=== PATIENT | female | born 1950 | race Caucasian/White ===

== ENCOUNTER 2016-12-02 07:06 | Emergency (ER) | payer MEDICARE ==
[2016-12-02 07:23] VITALS: BMI 34.9
[2016-12-02 07:24] VITALS: O2SAT 95
[2016-12-02] MEDS ORDERED: Sodium Chloride 0.9% 500 ML IV ONE ×2 (08:06→08:15)
[2016-12-02 08:15] LABS: BASO # 0.1 K/uL (0.0-0.2); BASO % 0.9 % (0.0-2.0); EOS # 0.2 K/uL (0.0-0.7); EOS % 2.1 % (0.0-4.0); HEMATOCRIT 36.8 % (34.0-47.0); LYMPH # 1.3 K/uL (1.0-4.3); LYMPH % 15.3 % (20.0-40.0); MEAN CELL VOLUME 77.6 fL (81.0-99.0); MEAN CORPUSCULAR HEMOGLOBIN 25.6 pg (27.0-31.0); MEAN PLATELET VOLUME 8.8 fL (7.2-11.7); MONO # 0.7 K/uL (0.0-0.8); MONO % 8.8 % (0.0-10.0); NRBC % 0.1 % (0.0-2.0); RED CELL DISTRIBUTION WIDTH 13.7 % (11.5-14.5)
[2016-12-02 08:18] LABS: WHITE BLOOD COUNT 8.5 K/uL (4.8-10.8)
[2016-12-02 08:20] LABS: RBC URINE 1 /hpf (0-3); URINE BILIRUBIN NEGATIVE (NEGATIVE); URINE BLOOD NEGATIVE (NEGATIVE); URINE COLOR Yellow (YELLOW); URINE GLUCOSE (UA) NORMAL (Normal); URINE KETONE NEGATIVE (NEGATIVE); URINE LEUKOCYTE ESTERASE TRACE Leu/uL (Negative); URINE PROTEIN NEGATIVE (NEGATIVE); URINE UROBILINOGEN NORMAL mg/dL (0.2-1.0); WBC URINE 3 /hpf (0-5)
[2016-12-02 08:26] LABS: CHLORIDE 97 mmol/L (98-107)
[2016-12-02 08:27] LABS: POTASSIUM 4.2 mmol/L (3.6-5.2); SODIUM 136 mmol/L (132-148)
[2016-12-02 08:29] LABS: ALB/GLOB RATIO 1.2 (1.0-2.1); ALKALINE PHOSPHATASE 60 U/L (38-126); ALT/SGPT 36 U/L (9-52); AST/SGOT 27 U/L (14-36); BILIRUBIN,TOTAL 0.8 mg/dL (0.2-1.3); BLOOD UREA NITROGEN 15 mg/dL (7-17); CARBON DIOXIDE 25 mmol/L (22-30); GFR AFRICAN-AMERICAN > 60; GLUCOSE,RANDOM 102 mg/dL (65-105); TOTAL PROTEIN 7.6 g/dL (6.3-8.3)
[2016-12-02 08:30] LABS: CALCIUM 8.6 mg/dl (8.6-10.4)
--- NOTE | 2016-12-02 09:13 | C.PDOC ---
History Of Present Illness 65 y/o female presents to the ED complaining of left periumbilical pain and LLQ pain x 4 days. Patient admits to some nausea but denies vomiting or diarrhea. She reports that she was seen by her PMD who gave her Bentyl with no relief. Patient admits to known history of diverticulitis "almost every year" since 2007. She states this pain feels similar. Also denies fever, dysuria, hematuria , or other complaints. Time Seen by Provider: 12/02/16 07:41 Chief Complaint (Nursing): Abdominal Pain History Per: Patient History/Exam Limitations: no limitations Onset/Duration Of Symptoms: Days (4), Gradual, Persistent Current Symptoms Are (Timing): Still Present Location Of Pain/Discomfort: LLQ, Periumbilical (left) Radiation Of Pain To:: None Quality Of Discomfort: Sharp, Aching Associated Symptoms: Nausea Recent travel outside of the [place]: No Past Medical History Reviewed: Historical Data, Nursing Documentation, Vital Signs Vital Signs: Last Vital Signs Temp 98.3 F 12/02/16 07:23 Pulse 84 12/02/16 07:23 Resp 20 12/02/16 07:23 BP 153/94 H 12/02/16 07:23 Pulse Ox 95 12/02/16 11:26 - Medical History PMH: Arthritis, Diverticulitis, HTN Surgical History: Endoscopy (11/2012), Tonsillectomy (1962) - [facility] Procedures TOTAL KNEE REPLACEMENT (04/05/14) Family History: States: No Known Family Hx - Social History Hx Tobacco Use: No Hx Alcohol Use: No Hx Substance Use: No - Immunization History Hx Tetanus Toxoid Vaccination: No Hx Influenza Vaccination: Yes Hx Pneumococcal Vaccination: Yes Review Of Systems Except As Marked, All Systems Reviewed And Found Negative. Constitutional: Negative for: Fever Gastrointestinal: Positive for: Nausea, Abdominal Pain. Negative for: Vomiting , Diarrhea Genitourinary: Negative for: Dysuria, Hematuria Physical Exam - Physical Exam Appears: Non-toxic, No Acute Distress, Other (mildly uncomfortable) Skin: Normal Color, Warm, Dry Head: Atraumatic, Normacephalic Neck: Normal ROM, Supple Chest: Symmetrical Cardiovascular: Rhythm Regular Respiratory: Normal Breath Sounds, No Rales, No Rhonchi, No Wheezing Gastrointestinal/Abdominal: Soft, Tenderness (left periumbilical and LLQ), No Guarding, No Rebound, Other (obese) Back: Normal Inspection, No CVA Tenderness Extremity: Normal ROM, No Swelling Neurological/Psych: Oriented x3, Normal Speech, Normal Cognition ED Course And Treatment - Laboratory Results Result Diagrams: 12/02/16 08:08 12/02/16 08:08 O2 Sat by Pulse Oximetry: 95 (ra) Pulse Ox Interpretation: Normal - CT Scan/US CT Abd/Pelvis Other Rad Studies (CT/US): Read By Radiologist, Radiology Report Reviewed CT/US Interpretation: Accession No. : [id number]. Patient Name / ID : ENRIQUE MAN / [id number]. Exam Date : 12/02/2016 08:51:35 ( Approved ). Study Comment : Sex / Age : F / 65Y. Creator : jeff [email or web address]. Dictator : Brian Lynn MD. Mold Unloader : Chiropractic Physician : Brian Lynn MD. Approver2 : Report Date : 12/02/2016 08:58:19. My Comment : . PROCEDURE: CT Abdomen and pelvis dated 12/02/2016. HISTORY: LLQ,L PERIUMBILICAL PAIN, H/O DIVERTICULITIS. COMPARISON: None. TECHNIQUE: Contiguous axial images of the abdomen and pelvis performed in standard fashion without oral or intravenous contrast material. . Coronal and Sagittal reformats generated. Radiation dose: Total exam DLP = 1080.59 mGy-cm. FINDINGS: LOWER THORAX: Mild bibasilar atelectasis and/or scarring. No focal consolidation effusion or basilar pneumothorax. Small hiatal hernia with slight wall thickening of the distal esophagus that could be due to protrusion of gastric mucosa. Possibility of esophagitis not excluded. Heart size is within range of normal. No significant pericardial effusion. LIVER: The liver is the upper limits of normal in size measuring nearly 17.5 cm in CC dimension. No obvious hepatic mass collection or calcification identified on this noncontrast study. Suspect minimal fatty hepatic infiltration. GALLBLADDER AND BILE DUCTS : Gallbladder is physiologically distended. No evidence of intraluminal gallbladder calculi. PANCREAS: The pancreas is slightly atrophic. No pancreatic mass collection calcification or significant ductal dilatation. SPLEEN: Spleen exhibits normal size and attenuation pattern without mass collection or calcification. ADRENALS: No adrenal lesions. KIDNEYS AND URETERS: Questionable incomplete rotation of the right kidney. Kidneys are symmetric. No evidence of nephrolithiasis or hydronephrosis. BLADDER: Urinary bladder is physiologically distended. No evidence of intraluminal urinary bladder calculi. REPRODUCTIVE: The uterus and adnexal structures appear grossly unremarkable. APPENDIX: Normal-appearing appendix. BOWEL: Evaluation of the bowel is somewhat limited due to the lack of oral contrast material. The stomach is under distended which presumably accounts for mild thick-walled appearance. Visualized loops of small bowel exhibit normal contour and caliber. No evidence acute mechanical small bowel obstruction. Moderate amount of stool is seen within the at ascending and proximal transverse colon suggesting mild fecal retention/ constipation. There arm multiple colonic diverticula seen along the descending and sigmoid colon with mild wall thickening of a short segment of the distal descending colon surrounded by some mild infiltration and what appears to represent small amount of fluid. Findings consistent with acute diverticulitis. No gross free intraperitoneal air nor walled-off abscess seen at this time. PERITONEUM: As above. Small fat containing umbilical hernia. LYMPH NODES: Unremarkable. No enlarged lymph nodes. VASCULATURE: Unremarkable. No aortic aneurysm. BONES: Mild -moderate multilevel degenerative spondylosis of the thoracic and lumbar spine. . Questionable old non fused avulsion chip fracture superior L3 segment. OTHER FINDINGS: None. IMPRESSION: Findings consistent with diverticulosis and mild diverticulitis involving a short segment of the distal descending colon. Progress Note: CT abdomen/pelvis, blood work, and urinalysis were ordered. Patient treated with Toradol IVP and IV fluids. Reassessment Condition: Improved (Reports improvement of abdominal pain - patient stable for discharge at this time. CT results were discussed with the patient who expresses understanding. Advised that she needs to follow up with her PMD in 1-2 days.) Disposition Counseled Patient/Family Regarding: Studies Performed, Diagnosis, Need For Followup, Rx Given - Disposition Referrals: Andre Vazquez MD [Staff Provider] - Disposition: HOME/ ROUTINE Disposition Time: 11:10 Condition: STABLE Additional Instructions: SEGUIMIENTO CON CROWE MDICO EN 1-2 PATRICK USE MEDICAMENTOS SEGN LO DIRIGIDO DEVUELVA A LA VELVET DE EMERGENCIA SI LOS SNTOMAS EMPEORARAN FOLLOW UP WITH YOUR DOCTOR IN 1-2 DAYS USE MEDICATIONS DIRECTED RETURN TO EMERGENCY ROOM IF SYMPTOMS WORSEN Prescriptions: Ciprofloxacin [Cipro] 1 tab PO BID #14 tab metroNIDAZOLE [Flagyl] 500 mg PO TID #21 tab Acetaminophen with Codeine [Tylenol with Codeine #3 Tablet] 1 each PO Q6 PRN # 12 tablet PRN Reason: pain Instructions: Diverticulitis (ED) Print Language: LITHUANIAN - POA Present On Arrival: None - Clinical Impression Clinical Impression: Diverticulitis - Scribe Statement The provider has reviewed the documentation as recorded by the Scribe (Dina Garcia) Provider Attestation: All medical record entries made by the Scribe were at my direction and personally dictated by me. I have reviewed the chart and agree that the record accurately reflects my personal performance of the history, physical exam, medical decision making, and the department course for this patient. I have also personally directed, reviewed, and agree with the discharge instructions and disposition.
--- NOTE | 2016-12-02 10:21 | CT ---
PROCEDURE: CT Abdomen and pelvis dated 12/02/2016. HISTORY: LLQ,L PERIUMBILICAL PAIN, H/O DIVERTICULITIS COMPARISON: None. TECHNIQUE: Contiguous axial images of the abdomen and pelvis performed in standard fashion without oral or intravenous contrast material. . Coronal and Sagittal reformats generated. Radiation dose: Total exam DLP = 1080.59 mGy-cm. FINDINGS: LOWER THORAX: Mild bibasilar atelectasis and/or scarring. No focal consolidation effusion or basilar pneumothorax. Small hiatal hernia with slight wall thickening of the distal esophagus that could be due to protrusion of gastric mucosa. Possibility of esophagitis not excluded. Heart size is within range of normal. No significant pericardial effusion. LIVER: The liver is the upper limits of normal in size measuring nearly 17.5 cm in CC dimension. No obvious hepatic mass collection or calcification identified on this noncontrast study. Suspect minimal fatty hepatic infiltration. GALLBLADDER AND BILE DUCTS: Gallbladder is physiologically distended. No evidence of intraluminal gallbladder calculi. PANCREAS: The pancreas is slightly atrophic. No pancreatic mass collection calcification or significant ductal dilatation. SPLEEN: Spleen exhibits normal size and attenuation pattern without mass collection or calcification. ADRENALS: No adrenal lesions. KIDNEYS AND URETERS: Questionable incomplete rotation of the right kidney. Kidneys are symmetric. No evidence of nephrolithiasis or hydronephrosis. BLADDER: Urinary bladder is physiologically distended. No evidence of intraluminal urinary bladder calculi. REPRODUCTIVE: The uterus and adnexal structures appear grossly unremarkable. APPENDIX: Normal-appearing appendix. BOWEL: Evaluation of the bowel is somewhat limited due to the lack of oral contrast material. The stomach is under distended which presumably accounts for mild thick-walled appearance. Visualized loops of small bowel exhibit normal contour and caliber. No evidence acute mechanical small bowel obstruction. Moderate amount of stool is seen within the at ascending and proximal transverse colon suggesting mild fecal retention/ constipation. There arm multiple colonic diverticula seen along the descending and sigmoid colon with mild wall thickening of a short segment of the distal descending colon surrounded by some mild infiltration and what appears to represent small amount of fluid. Findings consistent with acute diverticulitis. No gross free intraperitoneal air nor walled-off abscess seen at this time. PERITONEUM: As above. Small fat containing umbilical hernia. LYMPH NODES: Unremarkable. No enlarged lymph nodes. VASCULATURE: Unremarkable. No aortic aneurysm. BONES: Mild -moderate multilevel degenerative spondylosis of the thoracic and lumbar spine. . Questionable old non fused avulsion chip fracture superior L3 segment. OTHER FINDINGS: None. IMPRESSION: Findings consistent with diverticulosis and mild diverticulitis involving a short segment of the distal descending colon.
[2016-12-02 11:30] VITALS: BP 140/90; PULSE 73; RESP 18; TEMP 97.3
== END 2016-12-02 11:31 | disposition home or self-care (01) ==
LOC: C.ER 07:06
DX: K57.32 Diverticulitis of large intestine without perforation or abscess without bleeding (principal)
CPT/HCPCS: 74176; 80053; 81001; 83690; 85025; 87040; 96374; 99285; J1885; J7040

== ENCOUNTER 2016-12-18 19:29 | Observation (INO) | payer MEDICARE ==
[2016-12-18 19:29] VITALS: BMI 34.9
[2016-12-18] MEDS ORDERED: Sodium Chloride 0.9% 1,000 ML IV STA (20:28)
[2016-12-18 20:31] LABS: RBC URINE < 1 /hpf (0-3); URINE BILIRUBIN NEGATIVE (NEGATIVE); URINE BLOOD NEGATIVE (NEGATIVE); URINE COLOR Colorless (YELLOW); URINE GLUCOSE (UA) NORMAL (Normal); URINE KETONE NEGATIVE (NEGATIVE); URINE LEUKOCYTE ESTERASE NEG Leu/uL (Negative); URINE PROTEIN NEGATIVE (NEGATIVE); URINE UROBILINOGEN NORMAL mg/dL (0.2-1.0); WBC URINE 1 /hpf (0-5)
[2016-12-18] MEDS ORDERED: Sodium Chloride 0.9% 1,000 ML ONE (20:34)
--- NOTE | 2016-12-18 20:41 | C.PDOC ---
History Of Present Illness Patient is a 65 year old female who presents to the ER with a complaint of lower abdominal pain for 1 week and burning dysuria. Patient was seen in ER weeks ago for left lower quadrant pain and was diagnosed with diverticulitis. Patient finished antibiotic treatment and the pain was resolved. Patient followed up with PMD Dr. Vazquez, who started her on antibiotic for a presumed UTI. Patient continues with pain despite antibiotics. Denies vomiting and fever. Time Seen by Provider: 12/18/16 20:00 Chief Complaint (Nursing): Female Genitourinary History Per: Patient History/Exam Limitations: no limitations Onset/Duration Of Symptoms: Days (1 week) Current Symptoms Are (Timing): Still Present Location Of Pain/Discomfort: Other (Lower abdominal) Quality Of Discomfort: Burning (Dysuria) Associated Symptoms: Urinary Symptoms. denies: Fever, Vomiting (Dysuria) Past Medical History Reviewed: Historical Data, Nursing Documentation, Vital Signs Vital Signs: Last Vital Signs Temp 97.3 F L 12/20/16 08:00 Pulse 70 12/20/16 08:00 Resp 20 12/20/16 08:00 BP 119/81 12/20/16 08:00 Pulse Ox 94 L 12/20/16 10:26 - Medical History PMH: Arthritis, Diverticulitis, HTN Surgical History: Endoscopy (11/2012), Tonsillectomy (1962) - [facility] Procedures TOTAL KNEE REPLACEMENT (04/05/14) Family History: States: No Known Family Hx - Social History Hx Tobacco Use: No Hx Alcohol Use: No Hx Substance Use: No - Immunization History Hx Tetanus Toxoid Vaccination: No Hx Influenza Vaccination: Yes Hx Pneumococcal Vaccination: Yes Review Of Systems Constitutional: Negative for: Fever Gastrointestinal: Negative for: Vomiting Physical Exam - Physical Exam Additional Physical Exam Comments: Constitutional: No acute distress. Head: Normocephalic. Atraumatic. Eyes: PERRL. ENT: Moist mucous membranes. Neck: Supple. Cardiovascular: Regular rate. Radial pulses 2+ bilaterally. Chest: No tenderness. Respiratory: Clear to auscultation bilaterally. GI: Suprapubic tenderness Back: No CVA tenderness. Musculoskeletal: No tenderness or swelling of extremities. Skin: No rash. Neurologic: Alert, no focal deficit. ED Course And Treatment - Laboratory Results Result Diagrams: 12/18/16 20:44 12/20/16 07:22 O2 Sat by Pulse Oximetry: 94 Medical Decision Making Medical Decision Making: Abd/pelvis CT w/o PO or IV contrast, blood work, urine culture, and urinalysis ordered. IV fluids and toradol IVP administered. Abd/pelvis CT w/o PO or IV contrast results: FINDINGS: Lower thorax: There is bilateral linear atelectasis or scarring present in both lung bases. Minimal right base atelectasis. No consolidation. ABDOMEN: Liver: Liver is normal. No focal lesions. Gallbladder and bile ducts: Unremarkable. No calcified stones. No ductal dilation. No significant wall thickening. Pancreas: Unremarkable pancreas without mass, surrounding fluid or inflammation. No ductal dilation. Spleen: Unremarkable. No splenomegaly. Adrenals: The adrenal glands are normal. Kidneys and ureters: No obstructing renal stones or hydronephrosis. No solid mass. Normal appearance of both ureters, and renal pelvises. Stomach and bowel: The stomach is normal. No wall thickening or mucosal edema. Small to moderate amount of partially formed stool throughout the colon likely within physiologic limits. Moderate diverticulosis is present in the sigmoid and descending colon. No obstruction. Appendix: A normal appendix is identified. PELVIS: Bladder: The bladder is mildly distended. No stones. Reproductive: Unremarkable as visualized. ABDOMEN and PELVIS: Intraperitoneal space: Unremarkable. No free air. No significant fluid collection. Bones/joints: The spine demonstrates moderate degenerative changes at multiple levels. No acute fracture. No dislocation. Soft tissues: Unremarkable. Vasculature: The aorta and IVC appear within normal limits. No abdominal aortic aneurysm. Lymph nodes: Unremarkable. No enlarged lymph nodes. IMPRESSION: No acute process within the abdomen and pelvis. Incidental findings including diverticulosis without diverticulitis. Moderate degenerative changes of the spine. Bilateral basal scarring and minimal right base atelectasis. No bladder thickening, although there is mild bladder distention seen. Dr. Vazquez will admit patient for further observation, intractible pain. OBGYN consult requested and placed with Dr. August. Disposition - Disposition Disposition: HOSPITALIZED Disposition Time: 21:50 Condition: FAIR - Clinical Impression Clinical Impression: Dysuria, Abdominal pain - Scribe Statement The provider has reviewed the documentation as recorded by the Scribracquel Ballard All medical record entries made by the Freddieibracquel were at my direction and personally dictated by me. I have reviewed the chart and agree that the record accurately reflects my personal performance of the history, physical exam, medical decision making, and the department course for this patient. I have also personally directed, reviewed, and agree with the discharge instructions and disposition.
[2016-12-18 20:58] LABS: BASO % 1.2 % (0.0-2.0); EOS # 0.1 K/uL (0.0-0.7); EOS % 1.6 % (0.0-4.0); HEMATOCRIT 36.4 % (34.0-47.0); LYMPH # 1.6 K/uL (1.0-4.3); LYMPH % 38.1 % (20.0-40.0); MEAN CELL VOLUME 77.4 fL (81.0-99.0); MEAN CORPUSCULAR HEMOGLOBIN 25.6 pg (27.0-31.0); MEAN CORPUSCULAR HGB CONC 33.1 g/dL (33.0-37.0); MEAN PLATELET VOLUME 8.5 fL (7.2-11.7); MONO # 0.8 K/uL (0.0-0.8); MONO % 17.8 % (0.0-10.0); NRBC % 0.1 % (0.0-2.0); RED CELL DISTRIBUTION WIDTH 14.1 % (11.5-14.5); WHITE BLOOD COUNT 4.3 K/uL (4.8-10.8)
[2016-12-18 21:03] LABS: POTASSIUM 4.2 mmol/L (3.6-5.2)
[2016-12-18 21:06] LABS: ALB/GLOB RATIO 1.5 (1.0-2.1); BILIRUBIN,TOTAL 0.2 mg/dL (0.2-1.3); CALCIUM 8.5 mg/dl (8.6-10.4); TOTAL PROTEIN 7.2 g/dL (6.3-8.3)
--- NOTE | 2016-12-18 23:12 | CP.PCM.CON ---
History of Present Illness - History of Present Illness History of Present Illness: DIRECTOR OF HUMAN RESOURCES consult Patient is a 65 year old female who presents to the ER with a complaint of lower abdominal pain for 1 week and burning dysuria. Patient was seen in ER weeks ago for left lower quadrant pain and was diagnosed with diverticulitis. Patient finished antibiotic treatment and the pain was resolved. Patient followed up with PMD Dr. Vazquez, who started her on antibiotic for a presumed UTI. Patient continues with pain despite antibiotics. Denies vomiting and fever. Continues to have suprapubic pain and pelvic pressure.States that she feels burning pain along with pressure at the time of urination.Similar symptoms happen at the time of bowel movement as well. 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 absent: Diarrhea, Nausea, Vomiting - Genitourinary Additional comments: Pain with urination and pelvic pressure - Reproductive: Female Reproductive:Female: Post Menopausal - Menstruation Menstruation: Menopausal - Musculoskeletal Musculoskeletal: absent: Back Pain - Psychiatric Psychiatric: absent: Anxiety, Depression - Hematologic/Lymphatic Hematologic: As Per HPI Past Patient History - Infectious Disease Hx of Infectious Diseases: None - Past Medical History & Family History Past Medical History?: Yes - Past Social History Smoking Status: Never Smoked - CARDIAC Hx Hypertension: Yes - PULMONARY Hx Respiratory Disorders: No - NEUROLOGICAL Hx Neurological Disorder: No - RENAL Hx Chronic Kidney Disease: No - ENDOCRINE/METABOLIC Hx Endocrine Disorders: No - HEMATOLOGICAL/ONCOLOGICAL Hx Blood Disorders: No - INTEGUMENTARY Hx Dermatological Problems: No - MUSCULOSKELETAL/RHEUMATOLOGICAL Hx Arthritis: Yes - GASTROINTESTINAL Hx Diverticulitis: Yes - GENITOURINARY/GYNECOLOGICAL Hx Urinary Tract Infection: Yes (CHRONIC) - PSYCHIATRIC Hx Substance Use: No - SURGICAL HISTORY Hx Breast Biopsy: Yes (breast cyst removal) Hx Section: Yes Hx Joint Replacement: Yes Hx Tonsillectomy: Yes (1963) - ANESTHESIA Hx Anesthesia: Yes Hx Anesthesia Reactions: Yes (DIFFICULTY WAKING UP) Hx Malignant Hyperthermia: No Meds Allergies/Adverse Reactions: Allergies Allergy/AdvReac Type Severity Reaction Status Date / Time Penicillins Allergy Intermediate RASH Verified 12/18/16 20:58 DYE Allergy Intermediate RASH Uncoded 12/18/16 21:02 FRUIT Allergy Intermediate REDNESS Uncoded 12/18/16 21:04 MORPHINE SULFATE Allergy Intermediate RASH Uncoded 12/18/16 21:03 SHELLFISH Allergy Intermediate RASH Uncoded 12/18/16 21:05 Physical Exam - Constitutional Appears: No Acute Distress - Respiratory Exam Respiratory Exam: Clear to Auscultation Bilateral, NORMAL BREATHING PATTERN - Cardiovascular Exam Cardiovascular Exam: REGULAR RHYTHM - GI/Abdominal Exam GI & Abdominal Exam: Soft, Tenderness. absent: Rebound, Rigid - Exam Speculum exam: absent: Vaginal Bleeding, Vaginal Discharge Bimanual exam: NORMAL BIMANUAL EXAM Additional comments: Vulva -atrophy noticed; hyperpigmented lesion on right labia near the lower edge - Extremities Exam Extremities exam: Negative for: calf tenderness - Back Exam Back exam: absent: CVA tenderness (L), CVA tenderness (R) - Neurological Exam Neurological exam: Alert, Oriented x3 - Psychiatric Exam Psychiatric exam: Normal Affect, Normal Mood - Skin Skin Exam: Normal Color Results - Vital Signs Recent Vital Signs: Last Vital Signs Temp 97.5 F L 12/18/16 22:13 Pulse 68 12/18/16 22:13 Resp 18 12/18/16 22:13 BP 149/82 12/18/16 22:13 Pulse Ox 96 12/18/16 22:13 - Labs Result Diagrams: 12/18/16 20:44 12/18/16 20:44 Assessment & Plan - Assessment and Plan (Free Text) Assessment: 65 y/o female with lower abdominal and suprapubic pain and pressure.UA negative.S/p ct scan Pelvic ultrasound done.V rad reading -Ovaries not visualized.Small endometrial cyst In view of current scenario 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
--- NOTE | 2016-12-19 08:04 | CT ---
PROCEDURE: CT Abdomen and Pelvis without intravenous contrast HISTORY: abdominal pain COMPARISON: None. TECHNIQUE: Axial computed tomographic images were performed through the abdomen and pelvis without the use of intravenous contrast. Subsequently, sagittal and coronal reformatted images were obtained. Radiation dose: Total exam DLP = 906 mGy-cm. This CT exam was performed using one or more of the following dose reduction techniques: Automated exposure control, adjustment of the mA and/or kV according to patient size, and/or use of iterative reconstruction technique. FINDINGS: LOWER THORAX: Bilateral linear atelectasis or scarring present at both lung bases. Mild right basilar atelectasis. LIVER: Unremarkable. No gross lesion or ductal dilatation. GALLBLADDER AND BILE DUCTS: Unremarkable. PANCREAS: Unremarkable. No gross lesion or ductal dilatation. SPLEEN: Unremarkable. ADRENALS: Unremarkable. No mass. KIDNEYS AND URETERS: Unremarkable. No hydronephrosis. No solid mass. VASCULATURE: Unremarkable. No aortic aneurysm. BOWEL: Unremarkable. No obstruction. No gross mural thickening. Moderate fecal retention in the colon. Moderate diverticulosis seen at the level of the sigmoid and descending colon. APPENDIX: Unremarkable. Normal appendix. PERITONEUM: Unremarkable. No free fluid. No free air. LYMPH NODES: Unremarkable. No enlarged lymph nodes. BLADDER: Mildly distended urinary bladder. REPRODUCTIVE: Unremarkable. BONES: Moderate degenerative changes within the spine. OTHER FINDINGS: None. IMPRESSION: Negative acute. Diverticulosis. Moderate degenerative changes of the spine. Bilateral basal scarring and minimal right basilar atelectasis. Mild urinary bladder distention. These findings were preliminarily reported at 9:21 p.m. on 12/18/[address] Geoffrey Martin from [facility].
[2016-12-19] MEDS: Enoxaparin 40 mg Syringe SC SCH (11:03)
--- NOTE | 2016-12-19 11:25 | US ---
HISTORY: burning dysuria, lower abdominal pain COMPARISON: December 18, 2016. CT abdomen and pelvis. TECHNIQUE: Transvaginal only. Real -time technique with 2D, duplex and color Doppler FINDINGS: UTERUS: Measures 5.9 x 2.5 cm. Normal in size and appearance. No fibroid or other mass lesion seen. ENDOMETRIUM: Measures 2.3 mm in diameter. 2.6 mm endometrial cyst. CERVIX: No cervical abnormality identified. RIGHT OVARY: Nonvisualized. Adnexal region obscured by overlying bowel gas. LEFT OVARY: Nonvisualized. Adnexal region obscured by overlying bowel gas. FREE FLUID: No significant free fluid noted. OTHER FINDINGS: None. IMPRESSION: No acute findings related to/accounting for the clinical presentation. Additional benign and/or incidental findings described above. Limitations of the current examination: Nonvisualization of the adnexa. Concordant results (preliminary interpretation) provided by [facility]. Procedure Completed: 22:40. Preliminary ([facility]) Report: Dictated and Authenticated: 22:52. Final Interpretation: 11:23. December 19, 2016.
--- NOTE | 2016-12-19 12:14 | RAD ---
PROCEDURE: Thoracic and lumbar spine dated 12/19/2016 HISTORY: oa COMPARISON: Comparison made with CT scan of the abdomen and pelvis 12/18/2016 which also imaged the lumbar and lower thoracic spine. Comparison also made with CT scan of the lumbar spine 12/28/2013. TECHNIQUE: AP and lateral views of the thoracic and lumbar spine. FINDINGS: No acute compression fractures nor retropulsed fragments. Pedicles appear grossly intact. Chronic appearing deformity anterior superior corner of the L3 segment unchanged. Remaining vertebral bodies otherwise exhibit normal stature. There is mild kyphosis centered at the L3-L4 level with slight posterior subluxation L3 over L4. There is also straightening of the normal lumbar lordosis. Multilevel degenerative spondylosis of the lumbar and thoracic spine. Changes include varying degrees of disc space narrowing more so along the posterior disk margins, endplate eburnation and anterolateral as well as small posterior osteophyte formation. IMPRESSION: Multilevel degenerative spondylosis as described. No acute compression fractures.
[2016-12-19 17:02] VITALS: RESP 20
--- NOTE | 2016-12-19 19:10 | CP.PCM.HP ---
History of Present Illness - History of Present Illness History of Present Illness: Patient is a 65 year old female well known to me with PMH of hypertension, arthritis, diverticulitis who presents initially to my office with c/o dysuria, abd pelvic pain and subjective fever , i started her on antibiotic for a presumed UTI. Patient continues with pain despite antibiotics. Denies vomiting and fever. Continues to have suprapubic pain and pelvic pressure.States that she feels burning pain along with pressure at the time of urination.Similar symptoms happen at the time of bowel movement as well. so i sent her to the ER with a complaint of lower abdominal pain for 1 week and burning dysuria. Patient was also seen in ER weeks ago for left lower quadrant pain and was diagnosed with diverticulitis. Patient finished antibiotic treatment and the pain was resolved. Present on Admission - Present on Admission Any Indicators Present on Admission: No Review of Systems - Review of Systems Systems not reviewed;Unavailable: Acuity of Condition - Constitutional Constitutional: Fatigue. absent: As Per HPI, Anorexia, Chills, Daytime Sleepiness, Excessive Sweating, Fever, Frequent Falls, Headache, Increased Appetite, Lethargy, Malaise, Night Sweats, Snoring, Sleep Apnea, Weight Gain, Weight Loss, Weakness, Other - EENT Eyes: absent: As Per HPI, Blind Spots, Blurred Vision, Change in Vision, Decreased Night Vision, Diplopia, Discharge, Dry Eye, Exophthalmos, Floaters, Irritation, Itchy Eyes, Loss of Peripheral Vision, Pain, Photophobia, Requires Corrective Lenses, Sees Flashes, Spots in Vision, Tunnel Vision, Other Visual Disturbances, Loss of Vision, Other Nose/Mouth/Throat: absent: As Per HPI, Epistaxis, Nasal Congestion, Nasal Discharge, Nasal Obstruction, Nasal Trauma, Nose Pain, Post Nasal Drip, Sinus Pain, Sinus Pressure, Bleeding Gums, Change in Voice, Dental Pain, Dry Mouth, Dysphagia, Halitosis, Hoarsness, Lip Swelling, Mouth Lesions, Mouth Pain, Odynophagia, Sore Throat, Throat Swelling, Tongue Swelling, Facial Pain, Neck Pain, Neck Mass, Other - Breasts Breasts: absent: As Per HPI, Change in Shape, Mass, Pain, Nipple Discharge, Nipple Inversion, Skin Changes, Swelling, Other - Cardiovascular Cardiovascular: absent: As Per HPI, Acrocyanosis, Chest Pain, Chest Pain at Rest , Chest Pain with Activity, Claudication, Diaphoresis, Dyspnea, Dyspnea on Exertion, Edema, Irregular Heart Rhythm, Pain Radiating to Arm/Neck/Jaw, Leg Edema, Leg Ulcers, Lightheadedness, Orthopnea, Palpitations, Paroxysmal Nocturnal Dyspnea, Pedal Edema, Radiating Pain, Rapid Heart Rate, Slow Heart Rate, Syncope, Other - Respiratory Respiratory: absent: As Per HPI, Cough, Dyspnea, Hemoptysis, Dyspnea on Exertion , Wheezing, Snoring, Stridor, Pain on Inspiration, Chest Congestion, Excessive Mucous Production, Change in Mucous Color, Pain with Coughing, Other - Gastrointestinal Gastrointestinal: Abdominal Pain. absent: As Per HPI, Belching, Bloating, Change in Bowel Habits, Change in Stool Character, Coffee Ground Emesis, Constipation, Cramping, Diarrhea, Dyspepsia, Dysphagia, Early Satiety, Excessive Flatus, Fecal Incontinence, Heartburn, Hematemesis, Hematochezia, Loose Stools, Melena, Nausea, Odynophagia, Temesmus, Vomiting, Other - Genitourinary Genitourinary: Dysuria, Flank Pain, Urinary Frequency. absent: As Per HPI, Change in Urinary Stream, Difficulty Urinating, Hematuria, Pyuria, Nocturia, Urinary Incontinence, Urinary Hesitance, Urinary Urgency, Voiding Freq/Small Amts, Freq UTI, Hx Renal/Bladder Calculi, Hx /Renal Surgery, Bladder Distension, Other Past Patient History - Infectious Disease Hx of Infectious Diseases: None - Past Medical History & Family History Past Medical History?: Yes - Past Social History Smoking Status: Unknown If Ever Smoked - CARDIAC Hx Cardiac Disorders: Yes Hx Hypertension: Yes - PULMONARY Hx Respiratory Disorders: No - NEUROLOGICAL Hx Neurological Disorder: No - HEENT Hx HEENT Problems: No - RENAL Hx Chronic Kidney Disease: No - ENDOCRINE/METABOLIC Hx Endocrine Disorders: No - HEMATOLOGICAL/ONCOLOGICAL Hx Blood Disorders: No - INTEGUMENTARY Hx Dermatological Problems: No - MUSCULOSKELETAL/RHEUMATOLOGICAL Hx Musculoskeletal Disorders: Yes Hx Arthritis: Yes Hx Falls: No - GASTROINTESTINAL Hx Gastrointestinal Disorders: Yes Hx Diverticulitis: Yes - GENITOURINARY/GYNECOLOGICAL Hx Genitourinary Disorders: Yes Hx Urinary Tract Infection: Yes (CHRONIC) - PSYCHIATRIC Hx Psychophysiologic Disorder: No Hx Substance Use: No - SURGICAL HISTORY Hx Surgeries: Yes Hx Breast Biopsy: Yes (breast cyst removal) Hx Section: Yes Hx Joint Replacement: Yes Hx Tonsillectomy: Yes (1963) - ANESTHESIA Hx Anesthesia: Yes Hx Anesthesia Reactions: Yes (DIFFICULTY WAKING UP) Hx Malignant Hyperthermia: No Has any member of the family had a problem w/ anesthesia?: No Meds Home Medications: Home Medication List Medication Instructions Recorded Confirmed Type Gabapentin [Neurontin] 300 mg PO HS #30 cap 12/20/16 Rx Allergies/Adverse Reactions: Allergies Allergy/AdvReac Type Severity Reaction Status Date / Time Penicillins Allergy Intermediate RASH Verified 12/18/16 20:58 tramadol Allergy Intermediate RASH Verified 12/19/16 01:20 DYE Allergy Intermediate RASH Uncoded 12/18/16 21:02 FRUIT Allergy Intermediate REDNESS Uncoded 12/18/16 21:04 MORPHINE SULFATE Allergy Intermediate RASH Uncoded 12/18/16 21:03 SHELLFISH Allergy Intermediate RASH Uncoded 12/18/16 21:05 Physical Exam - Constitutional Appears: No Acute Distress - Head Exam Head Exam: ATRAUMATIC, NORMAL INSPECTION, NORMOCEPHALIC - Eye Exam Eye Exam: EOMI, Normal appearance, PERRL Pupil Exam: NORMAL ACCOMODATION, PERRL - ENT Exam ENT Exam: Mucous Membranes Moist, Normal Exam - Cardiovascular Exam Cardiovascular Exam: REGULAR RHYTHM - GI/Abdominal Exam GI & Abdominal Exam: Normal Bowel Sounds, Soft. absent: Tenderness - Extremities Exam Extremities exam: Positive for: normal inspection - Back Exam Back exam: NORMAL INSPECTION - Neurological Exam Neurological exam: Alert, CN II-XII Intact, Normal Gait, Oriented x3, Reflexes Normal Results - Vital Signs Recent Vital Signs: Last Vital Signs Temp 98.3 F 12/19/16 15:00 Pulse 59 L 12/19/16 15:00 Resp 20 12/19/16 15:00 BP 129/82 12/19/16 15:00 Pulse Ox 94 L 12/19/16 15:00 - Labs Result Diagrams: 12/18/16 20:44 12/20/16 07:22 Assessment & Plan (1) Osteoarthritis of left knee Status: Chronic Priority: Low (2) Hypertension Status: Chronic Priority: Low (3) Dehydration Status: Acute Priority: High (4) UTI (urinary tract infection) Status: Acute
--- NOTE | 2016-12-19 19:17 | CP.PCM.PN ---
Subjective - Date & Time of Evaluation Date of Evaluation: 12/19/16 Time of Evaluation: 10:30 - Subjective Subjective: pt seen and evaluated at bedise, still c/o abdominal pain, was also consulted by title abstractor. Objective - Vital Signs/Intake and Output Vital Signs (last 24 hours): Temp Pulse Resp BP Pulse Ox 98.3 F 59 L 20 129/82 94 L 12/19/16 15:00 12/19/16 15:00 12/19/16 15:00 12/19/16 15:00 12/19/16 15:00 Intake and Output: 12/19/16 12/20/16 18:59 06:59 Intake Total 620 Balance 620 - Medications Medications: Current Medications Acetaminophen (Tylenol 325mg Tab) 650 mg PO Q6 [facility] Last Admin: 12/19/16 17:50 Dose: 650 mg Cyclobenzaprine HCl (Flexeril) 5 mg PO TID [facility] Last Admin: 12/19/16 17:52 Dose: 5 mg Dicyclomine HCl (Bentyl) 20 mg PO Q8 [facility] Last Admin: 12/19/16 13:41 Dose: 20 mg Docusate Sodium (Colace) 100 mg PO BID [facility] Last Admin: 12/19/16 17:50 Dose: 100 mg Enoxaparin Sodium (Lovenox) 40 mg SC DAILY [facility] Last Admin: 12/19/16 11:03 Dose: 40 mg Gabapentin (Neurontin) 300 mg PO HS [facility] Losartan Potassium (Cozaar) 50 mg PO DAILY [facility] Last Admin: 12/19/16 11:02 Dose: 50 mg Sennosides (Senokot Tab) 8.6 mg PO DAILY [facility] Last Admin: 12/19/16 14:34 Dose: 8.6 mg Zolpidem Tartrate (Ambien) 5 mg PO [facility] - Constitutional Appears: No Acute Distress - Head Exam Head Exam: ATRAUMATIC, NORMAL INSPECTION, NORMOCEPHALIC - Eye Exam Eye Exam: EOMI, Normal appearance, PERRL Pupil Exam: NORMAL ACCOMODATION, PERRL - Respiratory Exam Respiratory Exam: Clear to Ausculation Bilateral, NORMAL BREATHING PATTERN - Cardiovascular Exam Cardiovascular Exam: REGULAR RHYTHM, +S1, +S2. absent: Murmur - GI/Abdominal Exam GI & Abdominal Exam: Soft, Tenderness, Normal Bowel Sounds. absent: Bruit, Distended, Firm, Guarding, Rigid, Diminished Bowel Sounds, Hernia, Hyperactive Bowel Sounds, Hypoactive Bowel Sounds, Organomegaly, Pulsatile Mass, Rebound, Mass - Rectal Exam Rectal Exam: Deferred - Back Exam Back Exam: NORMAL INSPECTION. absent: CVA tenderness (L), CVA tenderness (R), Full ROM, muscle spasm, paraspinal tenderness, rash noted, tenderness, vertebral tenderness - Neurological Exam Neurological Exam: Alert, Awake, CN II-XII Intact, Normal Gait, Oriented x3 - Psychiatric Exam Psychiatric exam: Anxious Assessment and Plan (1) Osteoarthritis of left knee Status: Chronic (2) Hypertension Status: Chronic (3) Dehydration Status: Acute (4) UTI (urinary tract infection) Status: Acute - Assessment and Plan (Free Text) Plan: 65 y/o female with lower abdominal and suprapubic pain and pressure.UA negative.S/p ct scan Pelvic ultrasound done.V rad reading -Ovaries not visualized.Small endometrial cyst In view of current scenario doubt the pain to be of research interviewer origin.If no other cause found then recommend MRI for evaluation of soft tissues
[2016-12-20 07:44] LABS: CHLORIDE 96 mmol/L (98-107); SODIUM 131 mmol/L (132-148)
[2016-12-20 07:45] LABS: POTASSIUM 4.4 mmol/L (3.6-5.2)
[2016-12-20 07:47] LABS: CARBON DIOXIDE 24 mmol/L (22-30); GFR AFRICAN-AMERICAN > 60
[2016-12-20 07:48] LABS: BLOOD UREA NITROGEN 16 mg/dL (7-17); CALCIUM 8.2 mg/dl (8.6-10.4); GLUCOSE,RANDOM 91 mg/dL (65-105)
[2016-12-20 09:10] VITALS: BP 119/81; PULSE 70; TEMP 97.3
[2016-12-20] MEDS: Enoxaparin 40 mg Syringe SC SCH (09:18)
[2016-12-20 10:26] VITALS: O2SAT 94
--- NOTE | 2016-12-20 12:35 | CP.PCM.PN ---
Subjective - Date & Time of Evaluation Date of Evaluation: 12/20/16 Time of Evaluation: 10:00 - Subjective Subjective: Pt seen and examined today , states lower abdominal pain and burning improved , denies any other complaints Objective - Vital Signs/Intake and Output Vital Signs (last 24 hours): Temp Pulse Resp BP Pulse Ox 97.3 F L 70 20 119/81 94 L 12/20/16 08:00 12/20/16 08:00 12/20/16 08:00 12/20/16 08:00 12/20/16 10:26 Intake and Output: 12/20/16 12/20/16 06:59 18:59 Intake Total 400 120 Balance 400 120 - Medications Medications: Current Medications Acetaminophen (Tylenol 325mg Tab) 650 mg PO Q6 [facility] Last Admin: 12/20/16 12:23 Dose: 650 mg Cyclobenzaprine HCl (Flexeril) 5 mg PO TID [facility] Last Admin: 12/20/16 09:19 Dose: 5 mg Dicyclomine HCl (Bentyl) 20 mg PO Q8 [facility] Last Admin: 12/20/16 06:19 Dose: 20 mg Docusate Sodium (Colace) 100 mg PO BID [facility] Last Admin: 12/20/16 09:18 Dose: 100 mg Enoxaparin Sodium (Lovenox) 40 mg SC DAILY [facility] Last Admin: 12/20/16 09:18 Dose: 40 mg Gabapentin (Neurontin) 300 mg PO HS [facility] Last Admin: 12/19/16 21:46 Dose: 300 mg Losartan Potassium (Cozaar) 50 mg PO DAILY [facility] Last Admin: 12/20/16 09:18 Dose: 50 mg Sennosides (Senokot Tab) 8.6 mg PO DAILY [facility] Last Admin: 12/20/16 09:18 Dose: 8.6 mg Zolpidem Tartrate (Ambien) 5 mg PO HS [facility] Last Admin: 12/19/16 21:47 Dose: 5 mg - Labs Labs: 12/20/16 07:22 Assessment and Plan - Assessment and Plan (Free Text) Assessment: A/P 65 yr old female admitted for lower abdominal pain and burning vaginal ultrasound - negative spinal MRI- Multilevel degenerative spondylosis as described. No acute compression fractures. urine - negative started neurontin and symptoms improved D/W Dr. Vazquez, stable for discharge home today and f/u with Dr. Vazquez office in 1 week Discharge plan discussed with patient , via legal support assistant, who understands and agrees with plan
--- NOTE | 2016-12-21 12:46 | CP.PCM.DIS ---
Provider - Provider Date of Admission: 12/18/16 21:50 Attending physician: Andre Vazquez MD Time Spent in preparation of Discharge (in minutes): 30 Diagnosis - Discharge Diagnosis (1) Osteoarthritis of left knee Status: Chronic Priority: Low (2) Hypertension Status: Chronic Priority: Low (3) Dehydration Status: Acute Priority: High (4) UTI (urinary tract infection) Status: Acute Hospital Course - Lab Results Lab Results: Most Recent Lab Values WBC 4.3 K/uL (4.8-10.8) L 12/18/16 20:44 RBC 4.70 Mil/uL (3.80-5.20) 12/18/16 20:44 Hgb 12.0 g/dL (11.0-16.0) 12/18/16 20:44 Hct 36.4 % (34.0-47.0) 12/18/16 20:44 MCV 77.4 fL (81.0-99.0) L 12/18/16 20:44 MCH 25.6 pg (27.0-31.0) L 12/18/16 20:44 MCHC 33.1 g/dL (33.0-37.0) 12/18/16 20:44 RDW 14.1 % (11.5-14.5) 12/18/16 20:44 Plt Count 296 K/uL (130-400) 12/18/16 20:44 MPV 8.5 fL (7.2-11.7) 12/18/16 20:44 Neut % (Auto) 41.3 % (50.0-75.0) L 12/18/16 20:44 Lymph % (Auto) 38.1 % (20.0-40.0) 12/18/16 20:44 [place] % (Auto) 17.8 % (0.0-10.0) H 12/18/16 20:44 Eos % (Auto) 1.6 % (0.0-4.0) 12/18/16 20:44 Baso % (Auto) 1.2 % (0.0-2.0) 12/18/16 20:44 Neut # 1.8 K/uL (1.8-7.0) 12/18/16 20:44 Lymph # 1.6 K/uL (1.0-4.3) 12/18/16 20:44 [place] # 0.8 K/uL (0.0-0.8) 12/18/16 20:44 Eos # 0.1 K/uL (0.0-0.7) 12/18/16 20:44 Baso # 0.0 K/uL (0.0-0.2) 12/18/16 20:44 Sodium 131 mmol/L (132-148) L 12/20/16 07:22 Potassium 4.4 mmol/L (3.6-5.2) 12/20/16 07:22 Chloride 96 mmol/L (98-107) L 12/20/16 07:22 Carbon Dioxide 24 mmol/L (22-30) 12/20/16 07:22 Anion Gap 15 (10-20) 12/20/16 07:22 BUN 16 mg/dL (7-17) 12/20/16 07:22 Creatinine 1.0 MG/DL (0.7-1.2) 12/20/16 07:22 Est GFR ( Amer) > 60 12/20/16 07:22 Est GFR (Non-Af Amer) 55 12/20/16 07:22 Random Glucose 91 mg/dL (65-105) 12/20/16 07:22 Calcium 8.2 mg/dl (8.6-10.4) L 12/20/16 07:22 Total Bilirubin 0.2 mg/dL (0.2-1.3) 12/18/16 20:44 AST 27 U/L (14-36) 12/18/16 20:44 ALT 26 U/L (9-52) 12/18/16 20:44 Alkaline Phosphatase 62 U/L (38-126) 12/18/16 20:44 Total Protein 7.2 g/dL (6.3-8.3) 12/18/16 20:44 Albumin 4.3 g/dL (3.5-5.0) 12/18/16 20:44 Globulin 2.9 gm/dL (2.2-3.9) 12/18/16 20:44 Albumin/Globulin Ratio 1.5 (1.0-2.1) 12/18/16 20:44 Lipase 48 U/L (23-300) 12/18/16 20:44 Urine Color Colorless (YELLOW) 12/18/16 20:12 Urine Clarity Clear (Clear) 12/18/16 20:12 Urine pH 6.0 (5.0-8.0) 12/18/16 20:12 Ur Specific [place] 1.003 (1.003-1.030) 12/18/16 20:12 Urine Protein Negative mg/dL (NEGATIVE) 12/18/16 20:12 Urine Glucose (UA) Normal mg/dL (Normal) 12/18/16 20:12 Urine Ketones Negative mg/dL (NEGATIVE) 12/18/16 20:12 Urine Blood Negative (NEGATIVE) 12/18/16 20:12 Urine Nitrate Negative (NEGATIVE) 12/18/16 20:12 Urine Bilirubin Negative (NEGATIVE) 12/18/16 20:12 Urine Urobilinogen Normal mg/dL (0.2-1.0) 12/18/16 20:12 Ur Leukocyte Esterase Neg [place]/uL (Negative) 12/18/16 20:12 Urine WBC (Auto) 1 /hpf (0-5) 12/18/16 20:12 Urine RBC (Auto) < 1 /hpf (0-3) 12/18/16 20:12 Ur Squamous Epith Cells < 1 /hpf (0-5) 12/18/16 20:12 - Hospital Course Hospital Course: Pt seen and examined today , states lower abdominal pain and burning improved , denies any other complaints pt is for discharge to home Discharge Exam - Head Exam Head Exam: ATRAUMATIC, NORMAL INSPECTION, NORMOCEPHALIC - Eye Exam Eye Exam: EOMI, Normal appearance, PERRL Pupil Exam: NORMAL ACCOMODATION, PERRL - Respiratory Exam Respiratory Exam: Clear to PA & Lateral, NORMAL BREATHING PATTERN - Cardiovascular Exam Cardiovascular Exam: REGULAR RHYTHM, +S1, +S2 - GI/Abdominal Exam GI & Abdominal Exam: Normal Bowel Sounds - Neurological Exam Neurological exam: Alert, CN II-XII Intact, Normal Gait, Oriented x3, Reflexes Normal Discharge Plan - Discharge Medications Prescriptions: Gabapentin [Neurontin] 300 mg PO HS #30 cap - Follow Up Plan Condition: FAIR Disposition: HOME/ ROUTINE Instructions: Acute Abdominal Pain (DC) Additional Instructions: f/u with Dr. Vazquez office in 1 week Continue medication as per Med Rec.
== END 2016-12-20 13:15 | disposition home or self-care (01) ==
LOC: C.ER 19:29 → C.9E 21:50 → C.3T 22:53
PROVIDERS: ADMIT Internal Medicine; ATTEND Internal Medicine
DX: E86.0 Dehydration (principal); I10 Essential (primary) hypertension; M17.12 Unilateral primary osteoarthritis, left knee; N39.0 Urinary tract infection, site not specified; M47.816 Spondylosis without myelopathy or radiculopathy, lumbar region; M47.814 Spondylosis without myelopathy or radiculopathy, thoracic region
CPT/HCPCS: 36415; 72082; 74176; 76830; 80048; 80053; 81001; 83690; 85025; 87086; 96360; 96374; 99285; G0378; J1650; J1885; J7040

== ENCOUNTER 2017-04-23 00:51 | Emergency (ER) | payer MEDICARE ==
[2017-04-23 00:51] VITALS: BMI 34.9
[2017-04-23 01:13] VITALS: RESP 20; O2SAT 96
[2017-04-23] MEDS ORDERED: Sodium Chloride 0.9% 500 ML IV ONE (01:43)
[2017-04-23] MEDS ORDERED: Sodium Chloride 0.9% 0 ML ONE (01:49)
[2017-04-23 01:58] LABS: BASO # 0.1 K/uL (0.0-0.2); BASO % 0.7 % (0.0-2.0); EOS # 0.2 K/uL (0.0-0.7); EOS % 1.8 % (0.0-4.0); LYMPH # 1.4 K/uL (1.0-4.3); LYMPH % 13.8 % (20.0-40.0); MEAN CELL VOLUME 79.2 fL (81.0-99.0); MEAN CORPUSCULAR HEMOGLOBIN 25.8 pg (27.0-31.0); MEAN CORPUSCULAR HGB CONC 32.6 g/dL (33.0-37.0); MEAN PLATELET VOLUME 8.4 fL (7.2-11.7); MONO # 0.9 K/uL (0.0-0.8); MONO % 9.2 % (0.0-10.0); RED CELL DISTRIBUTION WIDTH 13.6 % (11.5-14.5); WHITE BLOOD COUNT 10.3 K/uL (4.8-10.8)
[2017-04-23 02:04] LABS: RBC URINE 27 /hpf (0-3); URINE BILIRUBIN NEGATIVE (NEGATIVE); URINE BLOOD 3+ (NEGATIVE); URINE COLOR Straw (YELLOW); URINE GLUCOSE (UA) NORMAL (Normal); URINE KETONE NEGATIVE (NEGATIVE); URINE LEUKOCYTE ESTERASE 3+ Leu/uL (Negative); URINE PROTEIN 1+ mg/dL (NEGATIVE); URINE UROBILINOGEN NORMAL mg/dL (0.2-1.0); WBC URINE 220 /hpf (0-5)
[2017-04-23 02:05] LABS: URINE BACTERIA FEW (<OCC)
[2017-04-23 02:10] LABS: ALB/GLOB RATIO 1.3 (1.0-2.1); ALKALINE PHOSPHATASE 108 U/L (38-126); ALT/SGPT 41 U/L (9-52); AST/SGOT 27 U/L (14-36); BILIRUBIN,TOTAL 0.6 mg/dL (0.2-1.3); BLOOD UREA NITROGEN 13 mg/dL (7-17); CALCIUM 8.4 mg/dl (8.6-10.4); CARBON DIOXIDE 21 mmol/L (22-30); CHLORIDE 96 mmol/L (98-107); GFR AFRICAN-AMERICAN > 60; GLUCOSE,RANDOM 115 mg/dL (65-105); POTASSIUM 4.2 mmol/L (3.6-5.2); SODIUM 135 mmol/L (132-148); TOTAL PROTEIN 7.1 g/dL (6.3-8.3)
[2017-04-23 02:17] VITALS: BP 139/79; PULSE 74; TEMP 97.1
[2017-04-23] MEDS ORDERED: Sodium Chloride 0.9% 1,000 ML ONE (02:41)
--- NOTE | 2017-04-23 03:00 | C.PDOC ---
History Of Present Illness 66 year old female who presents to the ER with a complaint of suprapubic pain/ pressure and dysuria since yesterday. Patient reports she has a Hx of UTIs and states it feels similar to previous episodes; denies back pain, nausea, vomiting , or fever. Time Seen by Provider: 04/23/17 01:13 Chief Complaint (Nursing): Abdominal Pain History Per: Patient History/Exam Limitations: no limitations Onset/Duration Of Symptoms: Days Current Symptoms Are (Timing): Still Present Location Of Pain/Discomfort: Suprapubic Radiation Of Pain To:: None Quality Of Discomfort: Unable To Describe Associated Symptoms: Urinary Symptoms. denies: Fever, Chills, Nausea, Vomiting Exacerbating Factors: None Alleviating Factors: None Recent travel outside of the [place]: No Abnormal Vaginal Bleeding: No Past Medical History Reviewed: Historical Data, Nursing Documentation, Vital Signs Vital Signs: Last Vital Signs Temp 97.1 F L 04/23/17 02:16 Pulse 74 04/23/17 02:16 Resp 20 04/23/17 02:16 BP 139/79 04/23/17 02:16 Pulse Ox 96 04/23/17 05:41 - Medical History PMH: Arthritis, Diverticulitis, HTN Surgical History: Endoscopy (11/2012), Tonsillectomy (1962) - [facility] Procedures TOTAL KNEE REPLACEMENT (04/05/14) Family History: States: Unknown Family Hx - Social History Hx Tobacco Use: No Hx Alcohol Use: No Hx Substance Use: No - Immunization History Hx Tetanus Toxoid Vaccination: No Hx Influenza Vaccination: Yes Hx Pneumococcal Vaccination: Yes Review Of Systems Constitutional: Negative for: Fever, Chills Gastrointestinal: Positive for: Abdominal Pain. Negative for: Nausea, Vomiting Genitourinary: Positive for: Dysuria Musculoskeletal: Positive for: Back Pain Physical Exam - Physical Exam Appears: Non-toxic Skin: Normal Color, Warm, Dry Head: Atraumatic, Normacephalic Oral Mucosa: Moist Chest: Symmetrical, No Tenderness Cardiovascular: Rhythm Regular, No Murmur Respiratory: Normal Breath Sounds, No Rales, No Rhonchi, No Wheezing Gastrointestinal/Abdominal: Soft, Tenderness (Minimal suprapubic) Back: Normal Inspection, No CVA Tenderness Neurological/Psych: Oriented x3, Normal Speech, Normal Cognition ED Course And Treatment - Laboratory Results Result Diagrams: 04/23/17 01:55 04/23/17 01:55 O2 Sat by Pulse Oximetry: 96 (Room air) Pulse Ox Interpretation: Normal Progress Note: Urine culture ordered. Toradol, macrobid, pyridium, and IV fluids administered. Labs and UA reviewed , d/w with pt and pt started on macrobid PO. U cx sent. Return precautions given and undeerstood by pt Disposition Counseled Patient/Family Regarding: Diagnosis, Need For Followup, Rx Given - Disposition Referrals: Andre Vazquez MD [Staff Provider] - Disposition: HOME/ ROUTINE Disposition Time: 02:57 Condition: STABLE Additional Instructions: Increase PO fluids Take medications prescribed Follow up with PMD in 1-2 days Return to ER if worse Prescriptions: Ibuprofen [Motrin] 600 mg PO Q6H #20 tab Nitrofurantoin Macrocrystals [Macrobid] 1 cap PO BID #14 cap Phenazopyridine HCl [Pyridium] 100 mg PO TID #6 tab Instructions: Urinary Tract Infection in Women (ED) Forms: [employer] (Grenadian) Print Language: MAORI - Clinical Impression Clinical Impression: UTI (urinary tract infection) - Scribe Statement The provider has reviewed the documentation as recorded by the Scribe Carl Ballard All medical record entries made by the Scribe were at my direction and personally dictated by me. I have reviewed the chart and agree that the record accurately reflects my personal performance of the history, physical exam, medical decision making, and the department course for this patient. I have also personally directed, reviewed, and agree with the discharge instructions and disposition.
== END 2017-04-23 03:16 | disposition home or self-care (01) ==
LOC: C.ER 00:51
DX: N39.0 Urinary tract infection, site not specified (principal)
CPT/HCPCS: 80053; 81001; 85025; 87086; 87181; 96361; 96374; 99285; J1885; J7040

== ENCOUNTER 2017-11-21 10:25 | Emergency (ER) | payer MEDICARE ==
[2017-11-21 10:31] VITALS: BMI 35.5
[2017-11-21 10:39] VITALS: BP 162/105; PULSE 102; RESP 17; TEMP 98.3; O2SAT 98
[2017-11-21] MEDS ORDERED: Silver Sulfadiazine 1% Cream (20 gm) TOP STA (11:05)
[2017-11-21] MEDS ORDERED: Silver Sulfadiazine 1% Cream (20 gm) ONE (11:08)
[2017-11-21] MEDS ORDERED: Bacitracin 500 Units/gm Oint Foilpak UD ONE (11:26)
[2017-11-21] MEDS ORDERED: Tdap Vaccine 0.5 ml Vial (10-64 yrs) IM ONE (11:31)
--- NOTE | 2017-11-21 11:43 | C.PDOC ---
History Of Present Illness Nelida Nicole is a 66 year old female, with a past medical history of hypertension, who presents to the emergency department with krishna to both hands onset this morning. Patient reports she was trying to put out a candle with a towel when she accidentally placed her hands on hot wax. She has krishna to tips of all the fingers in the left hand and areas in the fingers of the right hand. Patient has a 10/10 burning sensation. She also reports sustaining a laceration to the right hand after she broke the candle container. She doesn' t remember the last time she had a tetanus shot. She denies any headache, fever or chills. No further medical complaints. PMD: Andre Vazquez Time Seen by Provider: 11/21/17 10:48 Chief Complaint (Nursing): Burn History Per: Patient History/Exam Limitations: no limitations Injury Occurred (Timing): Hours Ago: (this morning.) Type Of Burn (Context): Other (hot wax) Burn Descrption: 2nd: Hand (volar aspect of both hands mainly including fingertips with blister formation.) Smoke Inhalation: None Associated Symptoms: denies: Headache Past Medical History Reviewed: Historical Data, Nursing Documentation, Vital Signs Vital Signs: Last Vital Signs Temp 98.3 F 11/21/17 10:34 Pulse 102 H 11/21/17 10:34 Resp 17 11/21/17 10:34 BP 162/105 H 11/21/17 10:34 Pulse Ox 98 11/21/17 11:44 - Medical History PMH: Arthritis, Diverticulitis, HTN Denies: Chronic Kidney Disease Surgical History: Endoscopy (11/2012), Tonsillectomy (1962) - [facility] Procedures TOTAL KNEE REPLACEMENT (04/05/14) Family History: States: Unknown Family Hx - Social History Hx Tobacco Use: No Hx Alcohol Use: No Hx Substance Use: No - Immunization History Hx Tetanus Toxoid Vaccination: No Hx Influenza Vaccination: Yes Hx Pneumococcal Vaccination: Yes Review Of Systems Constitutional: Negative for: Fever, Chills Skin: Positive for: Other (krishna to both hands mainly including fingertips.) Neurological: Negative for: Headache Physical Exam - Physical Exam Skin: Normal Color, Warm, Dry Head: Atraumatic, Normacephalic Eye(s): bilateral: Normal Inspection, PERRL, EOMI Neck: Normal ROM Chest: Symmetrical Cardiovascular: Rhythm Regular, No Murmur Respiratory: Normal Breath Sounds, No Wheezing Extremity: Normal ROM (upper extremities.), No Deformity, Other (2nd degree krishna to volar aspect of both hands, mainly including fingertips with blister formation. Noted superficial laceration to right hand.) Neurological/Psych: Oriented x3 Gait: Steady ED Course And Treatment O2 Sat by Pulse Oximetry: 98 (RA) Pulse Ox Interpretation: Normal Medical Decision Making Medical Decision Making: Initial Impression: Burn Initial Plan: --Adacel 0.5 ml --Motrin tab 600 mg PO --Silvadene 1% 20 gm 1 ea TOP --Tylenol 325mg tab 975 mg PO --Reevaluation -Silvadene ointment placed and dressing was applied. Disposition Counseled Patient/Family Regarding: Diagnosis, Need For Followup, Rx Given - Disposition Disposition: HOME/ ROUTINE Disposition Time: 11:39 Condition: STABLE Additional Instructions: [facility] Prescriptions: Ibuprofen [Motrin] 600 mg PO TID #15 tab Silver Sulfadiazine 1% 25 gm [Silvadene 1% 25 gm] 1 appl TP BID #25 gm Instructions: Skin Krishna (DC) Forms: Gen Discharge Inst Kyrgyz, [facility] (Kyrgyz) - POA Present On Arrival: None - Clinical Impression Clinical Impression: Second degree burn of hand - Scribe Statement Andrea Juarez Provider Attestation: All medical record entries made by the Scribe were at my direction and personally dictated by me. I have reviewed the chart and agree that the record accurately reflects my personal performance of the history, physical exam, medical decision making, and the department course for this patient. I have also personally directed, reviewed, and agree with the discharge instructions and disposition.
== END 2017-11-21 11:49 | disposition home or self-care (01) ==
LOC: C.ER 10:25
DX: T23.201A Burn of second degree of right hand, unspecified site, initial encounter (principal); T23.202A Burn of second degree of left hand, unspecified site, initial encounter; X08.8XXA Exposure to other specified smoke, fire and flames, initial encounter; I10 Essential (primary) hypertension

== ENCOUNTER 2019-01-11 14:47 | Outpatient (CLI) | payer MEDICARE | END 2019-01-11 14:48 | disposition home or self-care (01) | LOC: C.MAMMO 14:48 | DX: Z12.31 Encounter for screening mammogram for malignant neoplasm of breast (principal) ==